=== PATIENT | female | born 1955 | race Caucasian/White ===

== ENCOUNTER → 2016-11-13 | Outpatient (CLI) | payer OTHER ==
[~2016-11-13] MED LIST: ANAS1TAB PO; ARMOUR THYROID PO; ASPIRIN PO; CEPH500T PO; CHOL200024 PO; ESTROGEN CREAM VG; HYDR-3245 PO; LOVA20TA2 PO; MULTIVITAMIN PO; NYST5000 PO; ONDA4TAB13 SL; THYR15TA PO; THYR30TA PO
== END | disposition home or self-care (01) ==
LOC: CFH 12:02
PROVIDERS: ATTEND Nurse Practitioner Primary Care
DX: I82.401 Acute embolism and thrombosis of unspecified deep veins of right lower extremity (principal)

== ENCOUNTER → 2016-12-31 | Outpatient (CLI) | payer OTHER | END | disposition home or self-care (01) | LOC: CFH 07:09 | PROVIDERS: ATTEND Nurse Practitioner Primary Care | DX: K82.4 Cholesterolosis of gallbladder (principal); E03.9 Hypothyroidism, unspecified; E78.2 Mixed hyperlipidemia; C50.919 Malignant neoplasm of unspecified site of unspecified female breast; Z79.899 Other long term (current) drug therapy | CPT/HCPCS: 76700 ==

== ENCOUNTER → 2017-03-24 | Outpatient (CLI) | payer OTHER | END | disposition home or self-care (01) | LOC: CFH 08:02 | PROVIDERS: ATTEND Internal Medicine Hematology & Oncology | DX: Z12.31 Encounter for screening mammogram for malignant neoplasm of breast (principal); R14.0 Abdominal distension (gaseous) | CPT/HCPCS: 76830; 77063; 77067 ==

== ENCOUNTER → 2018-03-18 | Outpatient (CLI) | payer OTHER | END | disposition home or self-care (01) | LOC: CFH 06:42 | PROVIDERS: ATTEND Nurse Practitioner Primary Care | DX: M65.861 Other synovitis and tenosynovitis, right lower leg (principal); M77.51 Other enthesopathy of right foot and ankle ==